=== PATIENT | male | born 1985 | race American Indian/Alaskan Native ===

== ENCOUNTER 2019-02-25 08:47 | Emergency (ER) | payer SELFPAY ==
[2019-02-25 09:00] VITALS: BP 127/78
--- NOTE | 2019-02-25 10:18 | Emergency Department Report ---
HPI - General Chief Complaint: Extremity Injury, Lower Time Seen by Provider: 02/25/19 09:56 - HPI HPI: 33-year-old male presents the emergency department with bilateral leg pain from the thighs down to the calves has been going on since l ast night. 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 He says that he had to open the doors so that he could even extend his legs. He is unsure whether or not his discomfort is because he was in any certain strange positions or any position for a prolonged period of time. He denies any swelling, skin color change, rash, lesions. No past medical history. He has not taken anything for his symptoms prior to presentation. He denies any trauma or injury. ED Past Medical Hx - Past Medical History Previous Medical History?: No - Surgical History Past Surgical History?: No - Social History Smoking Status: Current Every Day Smoker Substance Use Type: None - Medications Home Medications: Home Medications Medication Instructions Recorded Confirmed Last Taken Type Cyclobenzaprine HCl [Flexeril 5 MG 5 mg PO BID PRN #6 tab 02/25/19 Unknown Rx TAB] Ibuprofen [Motrin 600 MG tab] 600 mg PO Q8H PRN #20 tablet 02/25/19 Unknown Rx ED Review of Systems ROS: Stated complaint: LEG PAIN (BOTH) Other details as noted in HPI Comment: All other systems reviewed and negative Constitutional: denies: chills, fever Respiratory: denies: cough, shortness of breath Cardiovascular: denies: chest pain, palpitations, edema Musculoskeletal: myalgia. denies: joint swelling Skin: denies: rash, lesions Physical Exam - Physical Exam Vital Signs: Vital Signs 02/25/19 08:58 Temperature 98.6 F Pulse Rate 103 H Respiratory 16 Rate Blood Pressure 127/78 O2 Sat by Pulse 100 Oximetry Physical Exam: GENERAL: The patient is well-developed well-nourished. HENT: Normocephalic. Atraumatic. Patient has moist mucous membranes. EYES: Extraocular motions are intact. NECK: Supple. Trachea is midline. CHEST/LUNGS: Clear to auscultation. There is no respiratory distress noted. HEART/CARDIOVASCULAR: Regular. There is no tachycardia. There is no murmur. ABDOMEN: There is no abdominal distention. SKIN: Skin is warm and dry. NEURO: The patient is awake, alert, and oriented. The patient is cooperative. The patient has no focal neurologic deficits. Normal speech. MUSCULOSKELETAL: There is some mild tenderness to palpation to the bilateral thighs and calves but no obvious deformity. There is no limitation range of motion. There is no evidence of acute injury. 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 TECHNIQUE: Duplex doppler imaging was performed through the veins of both lower extremities using venous compression and other maneuvers. COMPARISON: None available. FINDINGS: Right Common femoral vein: Negative. Right Superficial femoral vein: Negative. Right Popliteal vein: Negative. Right Calf veins: Negative. Left Common femoral vein: Negative. Left Superficial femoral vein: Negative. Left Popliteal vein: Negative. Left Calf veins: Negative. Additional findings: None. IMPRESSION: 1. No sonographic evidence for DVT in either lower extremity. - Medical Decision Making This patient presents to the emergency department with bilateral leg pain since last night. 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 No obvious edema, skin color changes, rash or lesions. I also obtained a metabolic panel to see if there could be any abnormalities causing muscle cramping but this resulted as normal as well. His vital signs were stable throughout his ED course. Patient was placed on some muscle relaxers and anti-inflammatories. He will follow up with primary care and has been instructed to return to the emergency Department with any worsening of symptoms or any acute distress. - Differential Diagnosis DVT, muscle spasms, muscle strain, cellulitis Critical Care Time: No Critical care attestation.: If time is entered above; I have spent that time in minutes in the direct care of this critically ill patient, excluding procedure time. ED Disposition Clinical Impression: Bilateral leg pain Disposition: DC-01 TO HOME OR SELFCARE Is pt being admited?: No Condition: Stable Instructions: Arthralgia (ED) Additional Instructions: Please follow-up with a primary care physician in the next few days. I am giving you a referral for a local orthopedist, Dr. Palmer, to follow up regarding your leg pains. I'm giving you a prescription for a small amount of muscle relaxer for your leg pains. This medication is sedating and therefore cannot be taken prior to working, driving, being responsible for children, and cannot be mixed with alcohol of any quantity. 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 Return to the emergency Department with any worsening of your symptoms or any acute distress. Prescriptions: Cyclobenzaprine HCl [Flexeril 5 MG TAB] 5 mg PO BID PRN #6 tab PRN Reason: Muscle Spasm Ibuprofen [Motrin 600 MG tab] 600 mg PO Q8H PRN #20 tablet PRN Reason: Pain Referrals: RICARDO SIFUENTES DO [Staff Physician] - 3-5 Days AMISHA PALMER MD [Staff Physician] - 3-5 Days [facility] [Outside] - 3-5 Days Forms: Work/School Release Form(ED) Time of Disposition: 12:34
[2019-02-25 11:03] LABS: BUN/Creatinine Ratio 6; Blood Urea Nitrogen 7 mg/dL (9-20); Calcium 9.1 mg/dL (8.4-10.2); Hemolysis Index 19
--- NOTE | 2019-02-25 12:06 | Vascular Lab Report ---
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 TECHNIQUE: Duplex doppler imaging was performed through the veins of both lower extremities using venous miya shilo and other maneuvers. COMPARISON: None available. FINDINGS: Right Common femoral vein: Negative. Right Superficial femoral vein: Negative. Right Popliteal vein: Negative. Right Calf veins: Negative. Left Common femoral vein: Negative. Left Superficial femoral vein: Negative. Left Popliteal vein: Negative. Left Calf veins: Negative. Additional findings: None. IMPRESSION: 1. No sonographic evidence for DVT in either lower extremity. Signer Name: Harjit Armstrong MD Signed: 02/25/2019 12:01 PM Workstation Name: [id number]
== END 2019-02-25 12:45 | disposition home or self-care (01) ==
LOC: ED 08:47
DX: M79.604 Pain in right leg (principal); M79.605 Pain in left leg
CPT/HCPCS: 36415; 80048; 93970